=== PATIENT | male | born 1945 | race Caucasian/White ===

== ENCOUNTER → 2016-06-17 | Day surgery (SDC) | payer MEDICARE, OTHER ==
[~2016-06-17] VITALS: Ht 182.9 cm; Wt 112.5 kg
[~2016-06-17] MED LIST: BIPAP INH; CALCITRIOL0.25 MCG PO; CATAPRES0.1 MG PO; COUMADIN **IA1 MG PO; DAILY VALUE1 EACH PO; DESYREL50 MG PO; DILAUDID 4MG4 MG PO; FERRO-TIME325 MG PO; LIPITOR80 MG PO; LOPRESSOR100 MG PO; NEURONTIN300 MG PO; NITROGLYCERIN0.4 MG SL; NORCO 5-325 TA1 EACH PO; NORVASC10 MG PO; PROTONIX40 MG PO; VITAMIN C1000 MG PO; VITAMIN D1000 UNIT PO; XANAX0.5 MG PO; ZYLOPRIM100 MG PO
--- NOTE | ~2016-06-17 | OR ---
PATIENT'S NAME: LUZ BARRAZA [facility] AGE: 71 Y [address] ROOM: [place] [address] LOCATION: [facility] ADMIT DATE: 06/17/2016 OR/Procedure Report DISCHARGE DATE: FAMILY PHYSICIAN: Kamila Hood MD ATTENDING PHYSICIAN: YAZMIN ORTIZ SURGEON: Yazmin Ortiz MD POPULATION HEALTH COACH: DATE OF PROCEDURE: 06/17/2016 PREOPERATIVE DIAGNOSIS: End-stage renal disease. POSTOPERATIVE DIAGNOSIS: End-stage renal disease. PROCEDURE PERFORMED: Right arm brachiocephalic arteriovenous fistula. 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 ANESTHESIA: General. ESTIMATED BLOOD LOSS: 10 mL. OPERATIVE FINDINGS: Good thrill and bruit in the fistula. Strong radial and ulnar signals at the end of the case. DESCRIPTION OF PROCEDURE: The patient was brought to the operating room, placed supine on the operating table, and prepped and draped in a sterile manner. Preoperative time-out was performed. The patient received preoperative antibiotics in the form of 2 g of Ancef. We made a standard incision 2 cm proximal to the antecubital fossa, dissected down to the fascia, incised the fascia in a longitudinal manner, and dissected out the brachial artery in a 360-degree fashion. We then did the same thing for the cephalic vein and transected it distally after ligation. We then gave 5000 units of heparin. We clamped proximally and distally on the artery and made an arteriotomy to 4 mm using an 11 blade as well as Ritter scissors. We then did a standard 6-0 Prolene anastomosis from the vein to the artery. We removed the clamps, and there was excellent flow into the vein. There was a strong, palpable thrill. Heparin was reversed with the use of protamine. Thrombin was used locally in the wound. Deep layers were closed with 2-0 and 3-0 Vicryl. Skin was closed with running 4-0 Monocryl. The patient tolerated the procedure well and was transferred to the recovery room and then home later that day. PATIENT'S NAME: LUZ BARRAZA [facility] AGE: 71 Y [address] ROOM: [place], [place] [address] LOCATION: [facility] ADMIT DATE: 06/17/2016 OR/Procedure Report DISCHARGE DATE: FAMILY PHYSICIAN: Kamila Hood MD ATTENDING PHYSICIAN: YAZMIN ORTIZ MD FKM/modl /[id number] d: 06/17/16 1456 t: 06/19/16 1042, OPERATIVE SUMMARY
[2016-06-17 10:53] LABS: BASOPHIL % 0.4 %; EOSINOPHIL # 0.1 K/uL (0.0-0.5); EOSINOPHIL % 1.9 %; HEMATOCRIT 36.8 % (37.0-53.0); HEMOGLOBIN 11.5 g/dL (11.0-16.0); IMMATURE GRANULOCYTE % 0.6 %; LYMPHOCYTE # 1.2 K/uL (0.8-4.0); MCH 29.8 pg (27.0-34.0); MCHC 31.3 gm/dL (32.0-36.5); MCV 95.3 fl (83.0-98.0); MONOCYTE # 0.6 K/uL (0.0-1.0); MONOCYTE % 9.1 %; MPV 9.7 fl (9.4-12.4); NEUTROPHIL # (ANC) 4.8 K/uL (1.4-9.0); NRBC % 0 /100WBC (0-0.00); PLATELET COUNT 277 K/uL (150-450); RBC 3.86 M/uL (3.50-5.50); RDW-CV 18.6 % (11.9-14.6); WBC 6.8 K/uL (4.0-11.0)
[2016-06-17 11:02] LABS: INR - (THERAPEUTIC) 1.1 (0.9-1.1); PROTIME 11.5 SECONDS (9.6-11.1); PTT 27 SECONDS (25-32)
[2016-06-17 11:13] LABS: ALBUMIN 3.6 gm/dL (3.5-5.0); CALCIUM 9.2 mg/dL (8.5-10.5); CREATININE 3.3 mg/dL (0.6-1.3); TOTAL BILIRUBIN 0.6 mg/dL (0.0-1.5); TOTAL PROTEIN 7.3 g/dL (6.0-8.4)
== END | disposition disaster alternative care site (69) ==
LOC: GPOC 06-16 15:00 → GSDC 10:19
PROVIDERS: Surgery Vascular Surgery
PROC: 03170ZF Bypass Right Brachial Artery to Lower Arm Vein, Open Approach (ICD-10-PCS; principal; 2016-06-17)
DX: E11.22 Type 2 diabetes mellitus with diabetic chronic kidney disease (principal); I12.0 Hypertensive chronic kidney disease with stage 5 chronic kidney disease or end stage renal disease; N18.6 End stage renal disease; I48.91 Unspecified atrial fibrillation; E78.5 Hyperlipidemia, unspecified; I25.10 Atherosclerotic heart disease of native coronary artery without angina pectoris; G47.00 Insomnia, unspecified; G47.33 Obstructive sleep apnea (adult) (pediatric); M19.90 Unspecified osteoarthritis, unspecified site; G25.81 Restless legs syndrome; Z87.891 Personal history of nicotine dependence; Z88.8 Allergy status to other drugs, medicaments and biological substances; Z98.890 Other specified postprocedural states
CPT/HCPCS: J0690; J1644; J2001; J2440; J2720; J7030